=== PATIENT | male | born 1985 | race Caucasian/White ===

== ENCOUNTER → 2018-06-24 16:13 | Outpatient (CLI) | payer BC | END | disposition home or self-care (01) | LOC: D.RAD 16:13 | DX: G89.4 Chronic pain syndrome (principal); M47.896 Other spondylosis, lumbar region; M46.1 Sacroiliitis, not elsewhere classified; M53.3 Sacrococcygeal disorders, not elsewhere classified; Z79.899 Other long term (current) drug therapy ==